=== PATIENT | male | born 2000 | race Caucasian/White ===

== ENCOUNTER 2022-09-16 21:55 | Inpatient (IN) | payer BC ==
[~2022-09-16] VITALS: Ht 167.6 cm; Wt 52.5 kg
[2022-09-16 22:44] LABS: BASOPHILS % (AUTO) 0.3 % (0-1); EOSINOPHILS % (AUTO) 0.2 % (0-6); HEMATOCRIT 43.1 % (42.0-52.0); HEMOGLOBIN 14.6 g/dl (14.0-17.9); LYMPHOCYTES # (AUTO) 1.4 X10'3 (1.1-4.8); LYMPHOCYTES % (AUTO) 15.4 % (21-51); MEAN CORPUSCULAR HEMOGLOBIN 31.9 PG (27.0-31.0); MEAN CORPUSCULAR HGB CONC 33.8 g/dL (33.0-36.5); MEAN CORPUSCULAR VOLUME 94.3 FL (78-98); MEAN PLATELET VOLUME 8.5 FL (7.4-10.4); MONOCYTES # (AUTO) 1.1 X10'3 (0-0.9); MONOCYTES % (AUTO) 12.7 % (2-12); NEUTROPHILS # (AUTO) 6.3 X10'3 (1.8-7.7); NEUTROPHILS % (AUTO) 71.4 % (42-75); PLATELET COUNT 385 X10'3 (140-440); RED BLOOD COUNT 4.57 X10'6 (4.70-6.10); RED CELL DISTRIBUTION WIDTH 12.3 % (11.5-14.5); WHITE BLOOD COUNT 8.8 X10'3 (4.5-11.0)
[2022-09-16 22:56] LABS: ANION GAP 9 (8-16); BLOOD UREA NITROGEN 8 MG/DL (7-18); CHLORIDE 102 MMOL/L (99-107); GLUCOSE 100 MG/DL (70-104); POTASSIUM 3.3 MMOL/L (3.5-5.1); SODIUM 138 MMOL/L (135-145); TOTAL CARBON DIOXIDE 26.9 MMOL/L (24-32)
[2022-09-16 22:57] LABS: ALANINE AMINOTRANSFERASE 28 U/L (12-78); ALBUMIN 4.5 G/DL (3.4-5.0); ALBUMIN/GLOBULIN RATIO 1.4 (1.1-1.5); ALKALINE PHOSPHATASE 73 IU/L (46-116); ASPARTATE AMINO TRANSFERASE 31 U/L (10-37); BILIRUBIN,TOTAL 0.5 MG/DL (0.1-1.0); BUN/CREATININE RATIO 8.8 (5.4-32.0); CALCIUM 8.8 MG/DL (8.5-10.1); CREATININE 0.91 MG/DL (0.60-1.10); TOTAL PROTEIN 7.8 G/DL (6.4-8.2); eGFR > 90 ML/MIN
[2022-09-16 23:15] LABS: ETHANOL < 0.010 GM/DL (0.0-0.010)
[2022-09-17 02:08] LABS: URINE AMPHETAMINE SCREEN NEGATIVE (Neg); URINE BARBITUATE SCREEN NEGATIVE (Neg); URINE BENZODIAZEPINES SCREEN NEGATIVE (Neg); URINE CANNABINOID SCREEN POSITIVE (Neg); URINE COCAINE SCREEN NEGATIVE (Neg); URINE METHADONE SCREEN NEGATIVE (Neg); URINE OPIATE SCREEN NEGATIVE (Neg); URINE PHENCYCLIDINE SCREEN NEGATIVE (Neg)
[2022-09-17] MEDS ORDERED: NO HOME MEDS (03:35)
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
--- NOTE | 2022-09-17 04:06 | NUR ---
The patient is resting on his bed.
--- NOTE | 2022-09-17 04:14 | NUR ---
at the bedside evaluating the patient
[2022-09-17] MEDS ORDERED: LORazepam 1 MG tablet PO ONE (04:30)
--- NOTE | 2022-09-17 05:13 | NUR ---
PACKET SENT TO [facility]
--- NOTE | 2022-09-17 05:49 | NUR ---
The patient did accept ativan PO with reassurance. He is currently resting on his bed.
[2022-09-17] MEDS: LORazepam 1 MG tablet PO SCH ×2 (08:00→20:27)
--- NOTE | 2022-09-17 08:00 | NUR ---
Pt woke for breakfast. He presents as anxious, confused, paranoid and fearful. Pt ate part of his breakfast. He agreed to take Zyprexa Zydis did not want the Ativan. Pt spoke to his roommate and his mother. He eventually laid down and went to sleep.
[2022-09-17] MEDS: OLANZapine 5mg rapidly disint. tablet PO SCH ×2 (08:37→20:28)
--- NOTE | 2022-09-17 10:26 | NUR ---
Accepted to [facility] I spoke with Loraine from [facility] office and accepted this pt per Dr. Jenkins at 1010. All accepting information was given and Loraine said she'll call this afternoon to see what time we brought him upstairs.
--- NOTE | 2022-09-17 10:34 | NUR ---
Pt appears to be sleeping. RR even and unlabored.
--- NOTE | 2022-09-17 10:47 | NUR ---
Per OTILIA Abraham pt is a flight risk per family report.
[2022-09-17] MEDS ORDERED: mag hydrox/Alum hydrox/simeth 30ml oral suspension PO PRN (11:20)
[2022-09-17] MEDS ORDERED: loperamide 2mg capsule PO PRN (11:20)
[2022-09-17] MEDS: nicotine 7mg patch - 24hr TD SCH (11:20)
[2022-09-17] MEDS ORDERED: acetaminophen 325mg tablet PO PRN ×2 (11:20)
[2022-09-17] MEDS ORDERED: magnesium hydroxide 30ml (MOM) UD suspension PO PRN (11:20)
--- NOTE | 2022-09-17 11:38 | NUR ---
Pt transferred to [facility] by Aurelia August RN and security Luke. Property and all belongings with original 5150 with AMERICA August.
[2022-09-17 11:40] VITALS: BP 107/65
--- NOTE | 2022-09-17 11:54 | NUR ---
Admission Note: Pt admitted to [facility] at 1140 from ER-OF on a 5150 for grave disability. Pt skin check completed - WNL. Pt was suspicious and scared of being mistreated, "I just want to hear that I'm going to be safe. I don't know you guys" Pt able to be reassured of his safety. According to ER documentation, pt has h/o schizophrenia, but has been off of his medications. Friends brought him to the ER for increased anxiety and paranoia. Pt was positive for cannabinoids. Pt belongings checked.
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
[2022-09-17 19:23] VITALS: BP 127/80
[2022-09-17] MEDS: NICOTINE POLACRILEX 2 MG LOZENGE BC PRN (20:31)
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
[2022-09-18 07:30] VITALS: BP 114/52
[2022-09-18] MEDS: OLANZapine 5mg rapidly disint. tablet PO SCH ×2 (08:11→20:53)
[2022-09-18] MEDS: LORazepam 1 MG tablet PO SCH ×2 (08:11→20:52)
[2022-09-18] MEDS: nicotine 7mg patch - 24hr TD SCH (08:12)
[2022-09-18 08:48] LABS: CHOL/HDL RATIO 2.6 (0.00-4.99); CHOLESTEROL 130 MG/DL (0-200); HDL CHOLESTEROL 50 MG/DL (35-60); LDL CHOLESTEROL 65 MG/DL (50-100); TRIGLYCERIDES 41 MG/DL (20-135)
[2022-09-18 09:15] LABS: HEMOGLOBIN A1C 5.5 % (4.5-6.2)
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
--- NOTE | 2022-09-18 16:06 | NUR ---
Therapeutic group Description: The therapeutic group program supports the Center's purpose of interrupting current crisis through encouraging peer and staff interaction, discouraging isolation, and skill building. Intervention Daily therapeutic group. Topic: self-concept, self-nurturing Response Client participated in the group, as evidenced by staying in the group room and listening, and interacting with peers regarding positive self-image. Client was late due to taking a shower, and was polite and apologetic. Client introduced himself gently and politely to a new peer: "I have not seen you here. What's your name?", assisting new peer in feeling included. Treatment plan Continue clinical course of care and crisis intervention, including therapeutic groups.
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
--- NOTE | 2022-09-18 18:39 | NUR ---
Upon turn of shift patient c/o to this nurse of anxiety and chest pain while pointing to chest, anxiety came up while he was playing monopoly. Requested "Ativan or something to help me relax." Called Roly, received orders for a 1 x Ativan 1 mg po to be given now and okay to resume 2000 scheduled Ativan. Will monitor.
[2022-09-18] MEDS ORDERED: LORazepam 1 MG tablet PO ONE (18:40)
[2022-09-18 20:00] VITALS: BP 147/79
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
[2022-09-19 07:00] VITALS: BP 98/63
[2022-09-19] MEDS: LORazepam 1 MG tablet PO SCH ×2 (07:37→21:05)
[2022-09-19] MEDS: olanzapine 10mg tablet PO SCH ×2 (07:37→21:05)
[2022-09-19] MEDS: nicotine 7mg patch - 24hr TD SCH (07:38)
[2022-09-19] MEDS: lactose-reduced food (Ensure Enlive) - 237ml bottle PO SCH ×3 (08:00→18:27)
--- NOTE | 2022-09-19 17:28 | NUR ---
RN PROGRESS NOTE Problem: Patient is a 21 y/o male placed on a 5150 for Grave Disability brought up to [facility]. Pts friend brought him to the ED with symptoms of paranoia, disorganized thought process, confusion, insomnia, leaving home and wandering in the cold. He had one psychiatric hospitalization approximately 1 year ago in [place] for symptoms associated with early onset of schizophrenia, per mothers report. Intervention: Provide medication administration & medication management; maintained a safe & supportive environment; clear & simple instructions; direction & encouragement regarding performance of ADLs; monitored behaviors & maintained clear boundaries; patient physical assessment & 1:1 patient interview; Therapeutic conversation & active listening; patient education & monitoring. Response: EDGING MACHINE CATCHER received pt. asleep in bed at start of shift. Pt. awoke for breakfast and ate in the community room. Pt appears somewhat disheveled with fair hygiene. Accepted all medications. Pt using telephone often during late morning, complaining that the medications are causing his memory to falter. 1:1 done at bedside. Denies SI/HI/AH/VH. Endorses depression and anxiety, but states it is improved. Pt. napped for 2 hours. Pt signed consent to speak with mother; update given to mother over the telephone. After lunch pt. observed in the community room socializing with peers. [facility] Plan: Continue close observation and 15 minute safety checks. Provide medication education and assess for medication side effects. Assess q shift and prn for severity of psychotic symptoms.
[2022-09-19 19:00] VITALS: BP 140/78
[2022-09-19] MEDS: NICOTINE POLACRILEX 2 MG LOZENGE BC PRN (21:07)
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
[2022-09-20 08:00] VITALS: BP 98/61
[2022-09-20] MEDS: nicotine 7mg patch - 24hr TD SCH (08:21)
[2022-09-20] MEDS: LORazepam 1 MG tablet PO SCH ×2 (08:21→20:30)
[2022-09-20] MEDS: olanzapine 10mg tablet PO SCH ×2 (08:21→20:29)
[2022-09-20] MEDS: lactose-reduced food (Ensure Enlive) - 237ml bottle PO SCH ×3 (08:22→18:00)
--- NOTE | 2022-09-20 13:57 | NUR ---
Araceli with Darion Florez [phone] if we need any help with discharge planning
--- NOTE | 2022-09-20 14:36 | NUR ---
Called Trace (roommate ph# [phone]) to see if someone could pickle maker Patrick upon discharge. He said he could pick him up when he is ready to discharge. PAM Apodaca
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
[2022-09-20 19:00] VITALS: BP 110/74
[2022-09-20] MEDS: NICOTINE POLACRILEX 2 MG LOZENGE BC PRN (21:31)
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
[2022-09-21 07:42] VITALS: BP 107/66
[2022-09-21] MEDS: olanzapine 10mg tablet PO SCH ×2 (08:16→20:17)
[2022-09-21] MEDS: LORazepam 1 MG tablet PO SCH ×2 (08:16→20:17)
[2022-09-21] MEDS: nicotine 7mg patch - 24hr TD SCH (08:17)
[2022-09-21] MEDS: lactose-reduced food (Ensure Enlive) - 237ml bottle PO SCH ×4 (08:38→19:55)
--- NOTE | 2022-09-21 17:14 | NUR ---
RN PROGRESS NOTE Problem: Patient is a 21 y/o male placed on a 5150 for Grave Disability brought up to [facility]. Pts friend brought him to the ED with symptoms of paranoia, disorganized thought process, confusion, insomnia, leaving home and wandering in the cold. He had one psychiatric hospitalization approximately 1 year ago in [place] for symptoms associated with early onset of schizophrenia, per mothers report. Intervention: Provide medication administration & medication management; maintained a safe & supportive environment; clear & simple instructions; direction & encouragement regarding performance of ADLs; monitored behaviors & maintained clear boundaries; patient physical assessment & 1:1 patient interview; Therapeutic conversation & active listening; patient education & monitoring. Response: patient woke up and came down to the community room for breakfast. He was compliant with medications. 1:1 at his bedside. He reports that hes doing better today, but cant quantify what is better. Yesterday when I met him, he said Im a trigger. Hed never seen me before, but I was a trigger. Asked him today if I was still a trigger, no, not anymore, your my friend now, so no more trigger. Patient has an odd way with triggers, and he has many. Patient believes that something he doesnt like, or anything that makes him uncomfortable is a trigger. Patient is jumpy, like hes afraid of everybody. He gets more tangential the longer he talks to me. Patient is voluntary now, and its hoped that he will stay long enough to get the help he needs. Plan: Continue close observation and 15 minute safety checks. Provide medication education and assess for medication side effects. Assess q shift and prn for severity of psychotic symptoms
[2022-09-21] MEDS: NICOTINE POLACRILEX 2 MG LOZENGE BC PRN (18:46)
[2022-09-21 19:47] VITALS: BP 138/80
--- NOTE | 2022-09-22 04:04 | NUR ---
RN PROGRESS NOTE Problem: Patient is a 21 y/o male placed on a 5150 for Grave Disability brought up to [facility]. Pts friend brought him to the ED with symptoms of paranoia, disorganized thought process, confusion, insomnia, leaving home and wandering in the cold. He had one psychiatric hospitalization approximately 1 year ago in [place] for symptoms associated with early onset of schizophrenia, per mothers report. Intervention: Provide medication administration & medication management; maintained a safe & supportive environment; clear & simple instructions; direction & encouragement regarding performance of ADLs; monitored behaviors & maintained clear boundaries; patient physical assessment & 1:1 patient interview; Therapeutic conversation & active listening; patient education & monitoring. Response: Patient was found sitting in community room socializing wit other patients. Patient came ou to talk to his mother on the phone and to ask nurse for information on his night medications. Patient was worried about the side effects and if they were why he wasn't 100% yet. Patient took night medications without issue including prn nicotine lozenge. Patient returned to community room where he stayed until eventually going to bed. Patient believes he is ready to return to normal life but his parents are not sure. Plan: Continue close observation and 15 minute safety checks. Provide medication education and assess for medication side effects. Assess q shift and prn for severity of psychotic symptoms
[2022-09-22 07:00] VITALS: BP 109/60
[2022-09-22] MEDS: LORazepam 1 MG tablet PO SCH ×2 (08:25→19:58)
[2022-09-22] MEDS: olanzapine 10mg tablet PO SCH (08:25)
[2022-09-22] MEDS: nicotine 7mg patch - 24hr TD SCH (08:26)
--- NOTE | 2022-09-22 09:58 | NUR ---
Initial: Pt admit DX psychosis PO 100% avg regular diet and Ensure Enlive TIDWM ordered by RN exceeding max estimated energy needs by 178% and protein needs by 246%. MICHEL d/w RN regarding cancelling Ensure in EMR if MD agreeable as pt does not need given meal intake alone being adequate. LBM 09/20. No further nutrition interventions at this time. Will continue to follow. Rec: 1. continue regular diet 2. stop Ensure Enlive in EMR; no necessary given adequate PO meals 3. bowel care per rx 4. weekly wts Addendum: 09/22/22 at [address] Amended: Links added.
[2022-09-22] MEDS: lactose-reduced food (Ensure Enlive) - 237ml bottle PO SCH ×2 (13:00→17:55)
[2022-09-22] MEDS: NICOTINE POLACRILEX 2 MG LOZENGE BC PRN ×2 (16:38→19:59)
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
[2022-09-22 20:00] VITALS: BP 111/79
[2022-09-22] MEDS ORDERED: OLANZAPINE 5 MG TABLET PO SCH (21:00)
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
[2022-09-23 07:53] VITALS: BP 112/50
[2022-09-23] MEDS: lactose-reduced food (Ensure Enlive) - 237ml bottle PO SCH (08:00)
[2022-09-23] MEDS ORDERED: olanzapine 10mg tablet PO SCH (08:00)
[2022-09-23] MEDS: nicotine 7mg patch - 24hr TD SCH (08:21)
[2022-09-23] MEDS: LORazepam 1 MG tablet PO SCH (08:22)
--- NOTE | 2022-09-23 14:13 | NUR ---
DISCHARGE PLAN Trace (PH# [phone]) can waste picker Patrick today to take him back to [place]. He can follow up with [facility]. PAM Apodaca
[2022-09-23] MEDS ORDERED: NICO-907 BC (16:04)
[2022-09-23] MEDS ORDERED: NICO-630 TD (16:04)
[2022-09-23] MEDS ORDERED: OLAN10TA73 PO (16:05)
[2022-09-23] MEDS ORDERED: OLAN5TAB75 PO (16:05)
--- NOTE | 2022-09-23 16:30 | NUR ---
DISCHARGE NOTE: Pt was picked up by his roommate, Trace. Property returned to him by DANIEL Knox. Pt signed all discharge papers. Pt declined smoking cessation referrals and information. Pt was happy to leave. Reports he will continue to take his medications and will follow up with out patient treatment.
== END 2022-09-23 16:54 | disposition home or self-care (01) | DRG 885 ==
LOC: ER 21:56 → ED HOLD 09-17 10:45 → ADULT MH 09-17 11:40
PROVIDERS: ADMIT Psychiatry & Neurology Psychiatry; ATTEND Psychiatry & Neurology Psychiatry
DX: F29 Unspecified psychosis not due to a substance or known physiological condition (principal); F12.10 Cannabis abuse, uncomplicated; Z20.822 Contact with and (suspected) exposure to COVID-19; F17.210 Nicotine dependence, cigarettes, uncomplicated; F20.81 Schizophreniform disorder; F43.10 Post-traumatic stress disorder, unspecified; Z81.1 Family history of alcohol abuse and dependence; Z81.8 Family history of other mental and behavioral disorders; Z82.5 Family history of asthma and other chronic lower respiratory diseases; Z91.410 Personal history of adult physical and sexual abuse; Z88.8 Allergy status to other drugs, medicaments and biological substances; Z71.6 Tobacco abuse counseling
CPT/HCPCS: 36415; 80053; 80061; 80305; 80320; 83036; 84443; 85025; 87081; 87811; 99285